=== PATIENT | female | born 1960 | race Caucasian/White ===

== ENCOUNTER 2017-07-13 22:55 | Emergency (ER) | payer BC, OTHER ==
[2017-07-13 22:59] VITALS: BP 120/83; PULSE 135; TEMP 98.9; BMI 31.7
--- NOTE | 2017-07-13 23:54 | PDOC ---
History of Present Illness - General History Source: Patient Exam Limitations: No Limitations - History of Present Illness Initial Comments: 07/14/17 00:06 Patient is a 56 year old female with pmhx of diabetes, cholecystectomy, hypercholesterolemia, and recurrent UTIs (complicated by pyelonephritis), who is accompanied by daughter and presents to the ER with cold sweats, cough, fever and weakness for 2 days. Patient has been taking motrin for the fever. She also reports nausea. She was seen by her PCP today who put her on levaquin and promethazine. Denies any vomiting, diarrhea, abdominal pain, lightheadedness or chest pain. <Corin Benavidez - Last Filed: 07/14/17 00:13> <Kerry Coyle - Last Filed: 07/14/17 01:37> - General Chief Complaint: Cold Symptoms Stated Complaint: FLU SYMPTOMS Time Seen by Provider: 07/13/17 23:06 Past History <Corin Benavidez - Last Filed: 07/14/17 00:13> - Past Medical History Anemia: No Asthma: No Cancer: No Cardiac Disorders: No CVA: No COPD: No Dementia: No Diabetes: Yes GI Disorders: No Disorders: No HTN: Yes Hypercholesterolemia: Yes Liver Disease: No Seizures: No Thyroid Disease: Yes - Surgical History Abdominal Surgery: No Appendectomy: No Cardiac Surgery: No Cholecystectomy: Yes Lung Surgery: No Neurologic Surgery: No Orthopedic Surgery: Yes (RIGHT SHOULDER ARTHROSCOPY) - Suicide/Smoking/Psychosocial Hx Smoking History: Never smoked Have you smoked in the past 12 months: No Information on smoking cessation initiated: No 'Breaking Loose' booklet given: 09/15/12 Hx Alcohol Use: No Drug/Substance Use Hx: No Substance Use Type: Alcohol <Kerry Coyle - Last Filed: 07/14/17 01:37> - Past Medical History Allergies/Adverse Reactions: Allergies Allergy/AdvReac Type Severity Reaction Status Date / Time No Known Drug Allergies Allergy Verified 07/13/17 22:57 Home Medications: Ambulatory Orders Aspirin Coated [Ecotrin -] 81 mg PO DAILY 09/01/12 Atorvastatin Ca [Lipitor] 20 mg PO HS 09/01/12 Levothyroxine [Synthroid -] 50 mcg PO DAILY 09/01/12 Metformin HCl [Glucophage] 1,000 mg PO BID 09/01/12 Glimepiride [Amaryl] 2 mg PO BID 09/15/12 Nebivolol HCl [Bystolic] 5 mg PO DAILY 02/25/14 Review of Systems - Review of Systems Able to Perform ROS?: Yes Comments:: 07/14/17 00:07 CONSTITUTIONAL: Present: fever, chills, diaphoresis, weakness Absent: malaise, loss of appetite HEENT: Absent: rhinorrhea, nasal congestion, throat pain, throat swelling, difficulty swallowing, mouth swelling, ear pain, eye pain, visual Changes CARDIOVASCULAR: Absent: chest pain, syncope, palpitations, irregular heart rate, lightheadedness , peripheral edema RESPIRATORY: Present: cough Absent: shortness of breath, dyspnea with exertion, orthopnea, wheezing, stridor , hemoptysis GASTROINTESTINAL: Absent: abdominal pain, abdominal distension, nausea, vomiting, diarrhea, constipation, melena, hematochezia GENITOURINARY: Absent: dysuria, frequency, urgency, hesitancy, hematuria, flank pain, genital pain MUSCULOSKELETAL: Absent: myalgia, arthralgia, joint swelling SKIN: Absent: rash, itching, pallor HEMATOLOGIC/IMMUNOLOGIC: Absent: easy bleeding, easy bruising, lymphadenopathy, frequent infections ENDOCRINE: Absent: unexplained weight gain, unexplained weight loss, heat intolerance, cold intolerance NEUROLOGIC: Absent: headache, focal weakness or paresthesias, dizziness, unsteady gait, seizure, mental status changes, bladder or bowel incontinence PSYCHIATRIC: Absent: anxiety, depression, suicidal or homicidal ideation, hallucinations. <Corin Benavidez - Last Filed: 07/14/17 00:13> *Physical Exam - Vital Signs Last Vital Signs Temp Pulse Resp BP Pulse Ox 98.9 F 135 H 18 120/83 96 07/13/17 22:57 07/13/17 22:57 07/13/17 22:57 07/13/17 22:57 07/13/17 22:57 - Physical Exam Comments: 07/14/17 00:07 GENERAL: Well developed, well nourished. Awake and alert. No acute distress. HEENT: Normocephalic, atraumatic. PERRLA, EOMI. No conjunctival pallor. Sclera are non- icteric. Moist mucous membranes. Oropharynx is clear. NECK: Supple. Full ROM. No JVD. Carotid pulses 2+ and symmetric, without bruits. No thyromegaly. No lymphadenopathy. CARDIOVASCULAR: +Tachycardia. No murmurs, rubs, or gallops. Distal pulses are 2+ and symmetric. PULMONARY: No evidence of respiratory distress. Lungs clear to auscultation bilaterally. No wheezing, rales or rhonchi. ABDOMINAL: Soft. Non-tender. Non-distended. No rebound or guarding. No organomegaly. Normoactive bowel sounds. MUSCULOSKELETAL Normal range of motion at all joints. No bony deformities or tenderness. No CVA tenderness. EXTREMITIES: No cyanosis. No clubbing. No edema. No calf tenderness. SKIN: Warm and dry. Normal capillary refill. No rashes. No jaundice. NEUROLOGICAL: Alert, awake, appropriate. Cranial nerves 2-12 intact. Normal speech. PSYCHIATRIC: Cooperative. Good eye contact. Appropriate mood and affect. <Corin Benavidez - Last Filed: 07/14/17 00:13> - Vital Signs Last Vital Signs Temp Pulse Resp BP Pulse Ox 98.9 F 135 H 18 120/83 96 07/13/17 22:57 07/13/17 22:57 07/13/17 22:57 07/13/17 22:57 07/13/17 22:57 <Kerry Coyle - Last Filed: 07/14/17 01:37> ED Treatment Course - LABORATORY CBC & Chemistry Diagram: 07/14/17 00:34 07/14/17 00:34 <Kerry Coyle - Last Filed: 07/14/17 01:37> *DC/Admit/Observation/Transfer - Attestations Scribe Attestion: 07/14/17 00:08 Documentation prepared by TAMI Pritchard, acting as medical assembler for Kerry Coyle MD/DO. <Corin Benavidez - Last Filed: 07/14/17 00:13> <Kerry Coyle - Last Filed: 07/14/17 01:37> Diagnosis at time of Disposition: Influenza B - Discharge Dispostion Disposition: HOME Condition at time of disposition: Stable - Referrals Referrals: Bob Muñoz MD [Primary Care Provider] - - Patient Instructions Printed Discharge Instructions: DI for Influenza -- Adult Additional Instructions: please take tylenol or motirn for fever and pain rest drink plenty of fluids support services rep your medications at your pharmacy
[2017-07-14] MEDS ORDERED: ACETAMINOPHEN 325 MG TABLET (FP) PO ONE (00:13)
[2017-07-14] MEDS ORDERED: ACETAMINOPHEN 325 MG TABLET (FP) ONE (00:29)
[2017-07-14 00:45] LABS: BASO % 0.6 % (0-2.0); EOS % 0.7 % (0-4.5); MCH 29.4 pg (25.7-33.7); MEAN CELL VOLUME 89.1 fl (80-96); MEAN PLT VOLUME 9.8 fl (7.5-11.1); NEUT % 68.7 % (42.8-82.8); PLATELET COUNT 132 K/MM3 (134-434); RDW 14.1 % (11.6-15.6); WHITE BLOOD COUNT 4.4 K/mm3 (4.0-10.0)
[2017-07-14 01:18] LABS: ALBUMIN 3.6 g/dl (3.4-5.0); ALK PHOS 79 U/L (45-117); BILIRUBIN,TOTAL 0.3 mg/dL (0.2-1.0); CALCIUM 8.7 mg/dL (8.5-10.1); CO2 23 mmol/L (21-32); CREATININE 0.6 mg/dL (0.55-1.02); GLUCOSE,RANDOM 118 mg/dL (74-106); SGOT/AST 30 U/L (15-37); SGPT/ALT 37 U/L (12-78); TOT PROT 7.2 g/dl (6.4-8.2)
[2017-07-14] MEDS ORDERED: OSELTAMIVIR PHOSPHATE 75 MG CAPSULE ONE (01:35)
[2017-07-14] MEDS ORDERED: OSELTAMIVIR PHOSPHATE 75 MG CAPSULE PO ONE (01:35)
[2017-07-14 01:59] LABS: ANION GAP 13 (8-16)
== END 2017-07-14 02:11 | disposition home or self-care (01) ==
LOC: JER 22:55
DX: J10.1 Influenza due to other identified influenza virus with other respiratory manifestations (principal); E11.9 Type 2 diabetes mellitus without complications; E78.00 Pure hypercholesterolemia, unspecified
CPT/HCPCS: 36415; 80053; 85025; 87804; 99281-25

== ENCOUNTER 2018-09-24 21:53 | Inpatient (IN) | payer OTHER ==
[2018-09-24 22:07] VITALS: BMI 39.0
[2018-09-24] MEDS ORDERED: ACETAMINOPHEN 1000 MG/100 ML VIAL (NON FORMULARY) IVPB ONE (22:32)
[2018-09-24] MEDS ORDERED: LACTATED RINGERS SOLUTION 1000 ML INFUS.BAG IV ONE (22:44)
[2018-09-24] MEDS ORDERED: ACETAMINOPHEN INJECTION 100 ML IVPB ONE (22:44)
--- NOTE | 2018-09-24 22:48 | PDOC ---
Attending Attestation - HPI HPI: 09/24/18 22:50 The patient is a 58 year old female, with a significant PMH of diabetes, hypertension, hyperlipidemia, coronary artery disease, who presents to the emergency department with one day of non productive cough, subjective fever, chills, generalized body aches, headache and congestion. The patient denies any sick contacts or travel. The patient denies recent chest pain, palpitations or SOB. Denies calf tenderness, leg swelling, lightheadedness or dizziness. Denies nausea, vomit, diarrhea and constipation. Denies dysuria, frequency, urgency and hematuria. Allergies: NKA Documentation prepared by Mingo Marcum, acting as medical sales for Brendon Mitchell MD. - Physicial Exam PE: 09/24/18 22:50 GENERAL: (+) Coughing throughout exam. Awake, alert, and fully oriented, in no acute distress HEAD: No signs of trauma EYES: PERRLA, EOMI, sclera anicteric, conjunctiva clear ENT: Auricles normal inspection, hearing grossly normal, nares patent. Moist mucosa NECK: Normal ROM, supple, no JVD. LUNGS: Breath sounds equal, clear to auscultation bilaterally. No wheezes, and no crackles HEART: Regular rate and rhythm, normal S1 and S2, no murmurs, rubs or gallops ABDOMEN: Soft, nontender. No guarding, no rebound. No masses EXTREMITIES: Normal range of motion, no edema. No clubbing or cyanosis. No cords, erythema, or tenderness NEUROLOGICAL: Cranial nerves II through XII intact. Normal speech. SKIN: Warm, Dry, normal turgor, no rashes or lesions noted. <Mingo Marcum - Last Filed: 09/24/18 22:50> - Resident Resident Name: Gladys Davison - ED Attending Attestation I have performed the following: I have examined & evaluated the patient, The case was reviewed & discussed with the resident, I agree w/resident's findings & plan, Exceptions are as noted - Medical Decision Making 09/24/18 22:43 A portion of this note was documented by scribe services under my direction. I have reviewed the details of the note, within reason, and agree with the documentation with the following case summary and management plan written by me. Patient treated in the ED. Nursing notes are reviewed and incorporated into the medical decision-making. Vital signs reviewed. Peripheral IV access obtained by the nurse, laboratory studies are drawn and sent, reviewed and interpreted by myself. Vital Signs Temp Pulse Resp BP Pulse Ox 102.1 F H 114 H 20 134/87 97 09/24/18 22:43 09/24/18 21:53 09/24/18 21:53 09/24/18 21:53 09/24/18 21:53 58-year-old female patient with past medical history of hypertension, diabetes, hyperlipidemia, coronary disease presents with flulike symptoms. Patient reported denies body aches, chills, fevers, nasal congestion, dry cough since yesterday. Denies sick contacts or recent travels. Patient reports feeling generally tired and fatigued. Differential includes viral syndrome, influenza, bronchitis, pneumonia, upper respiratory infection. We'll obtain labs, chest x-ray, influenza swab, cultures. IV fluids, antipyretics and reassess. 09/24/18 23:49 CBC, BMP 09/24/18 22:41 09/24/18 22:41 CMP Sodium 138 mmol/L (136-145) 09/24/18 22:41 Potassium 4.0 mmol/L (3.5-5.1) 09/24/18 22:41 Chloride 106 mmol/L (98-107) 09/24/18 22:41 Carbon Dioxide 21 mmol/L (21-32) 09/24/18 22:41 Anion Gap 10 MMOL/L (8-16) 09/24/18 22:41 BUN 11 mg/dL (7-18) 09/24/18 22:41 Creatinine 0.7 mg/dL (0.55-1.3) 09/24/18 22:41 Creat Clearance w eGFR > 60 (>60) 09/24/18 22:41 Random Glucose 96 mg/dL (74-106) 09/24/18 22:41 Calcium 9.1 mg/dL (8.5-10.1) 09/24/18 22:41 Magnesium 2.0 mg/dL (1.8-2.4) 09/24/18 22:42 Total Bilirubin 0.4 mg/dL (0.2-1) 09/24/18 22:41 AST 20 U/L (15-37) 09/24/18 22:41 ALT 28 U/L (13-61) 09/24/18 22:41 Alkaline Phosphatase 82 U/L (45-117) 09/24/18 22:41 Troponin I < 0.02 ng/ml (0.00-0.05) 09/24/18 22:35 Total Protein 7.7 g/dl (6.4-8.2) 09/24/18 22:41 Albumin 4.0 g/dl (3.4-5.0) 09/24/18 22:41 Though influenza swab is negative, the rapid test has a sensitivity of 50 to 70% . Given my high pretest probability, I will still treat for influenza with tamiflu. 09/25/18 00:01 Chest xray reviewed by me, pending official radiology read. No acute infiltrates but ?bronchitis. Will initiate azithromycin as well. lactic acid 2.6. Will repeat after giving IVF. If lactate and fever downtrending, pt can be discharged home with tamiflu and azithromycin and albuterol PRN. <Brendon Mitchell - Last Filed: 09/25/18 00:01> Heart Score/ECG Review #1 ECG reviewed & interpreted by me at: 23:30 09/24/18 23:48 NSR 116, no std/paula, normal axis, normal intervals, QTC 464 msec Poor R wave progression <Brendon Mitchell - Last Filed: 09/25/18 00:01>
[2018-09-24 22:49] LABS: BASO % 0.6 % (0-2.0); EOS % 0.7 % (0-4.5); HEMATOCRIT 40.4 % (32.4-45.2); HEMOGLOBIN 13.7 GM/dL (10.7-15.3); LYMPH % 14.4 % (8-40); MCH 30.6 pg (25.7-33.7); MCHC 33.9 g/dl (32.0-36.0); MEAN CELL VOLUME 90.3 fl (80-96); MEAN PLT VOLUME 9.8 fl (7.5-11.1); MONO % 4.7 % (3.8-10.2); NEUT % 79.6 % (42.8-82.8); PLATELET COUNT 163 K/MM3 (134-434); RBC 4.47 M/mm3 (3.60-5.2); RDW 14.2 % (11.6-15.6); WHITE BLOOD COUNT 12.2 K/mm3 (4.0-10.0)
[2018-09-24 22:51] LABS: URINE APPEARANCE CLEAR; URINE BILIRUBIN NEGATIVE (<2.0 mg/dL); URINE COLOR STRAW; URINE GLUCOSE (UA) NEGATIVE (NEGATIVE); URINE KETONE NEGATIVE (NEGATIVE); URINE LEUK ESTERASE NEGATIVE (NEGATIVE); URINE NITRITE NEGATIVE (NEGATIVE); URINE PROTEIN NEGATIVE (NEGATIVE); URINE UROBILINOGEN NEGATIVE mg/dL (0.2-1.0); VENOUS PC02 29.1 mmHg (38-52); VENOUS PH 7.46 (7.32-7.42); VENOUS PO2 87.2 mmHg (28-48)
[2018-09-24 22:53] LABS: EPI CELLS RARE /HPF (FEW); URINE MUCUS RARE
[2018-09-24 23:13] LABS: ALK PHOS 82 U/L (45-117); ANION GAP 10 MMOL/L (8-16); BILIRUBIN,TOTAL 0.4 mg/dL (0.2-1); BLOOD UREA NITROGEN 11 mg/dL (7-18); CALCIUM 9.1 mg/dL (8.5-10.1); CHLORIDE 106 mmol/L (98-107); CO2 21 mmol/L (21-32); CREATININE 0.7 mg/dL (0.55-1.3); GLUCOSE,RANDOM 96 mg/dL (74-106); SGOT/AST 20 U/L (15-37); SGPT/ALT 28 U/L (13-61); SODIUM 138 mmol/L (136-145); TOT PROT 7.7 g/dl (6.4-8.2)
[2018-09-24 23:17] LABS: INR 0.91 (0.83-1.09); PROTHROMBIN TIME (PATIENT) 10.7 SEC (9.7-13.0)
--- NOTE | 2018-09-25 00:08 | PDOC ---
History of Present Illness - General Chief Complaint: Chest Pain Stated Complaint: CHEST PAIN Time Seen by Provider: 09/24/18 22:03 History Source: Patient Exam Limitations: No Limitations - History of Present Illness Initial Comments: 09/25/18 00:03 Pt is a 58yo F with PMH of CAD s/p cath last year, HTN, HLD, DM presenting to ED with complaints of chest pain, headache, generalized weakness, dry cough, fever and chills that started yesterday with symptoms worse today. She endorses dry cough with a feeling of "something stuck" in the middle of her chest which she wants to cough out with pain located in that area. She denies recent hospitalization, antibiotic use, sick contacts, abdominal pain, n/v/d, urinary symptoms, neck stiffness, sore throat. PMD: Wanda PMH: see hpi PSH: see hpi Meds: see med rec Allergies: nkda Social: denies Past History - Past Medical History Allergies/Adverse Reactions: Allergies Allergy/AdvReac Type Severity Reaction Status Date / Time No Known Drug Allergies Allergy Verified 09/24/18 22:08 Home Medications: Ambulatory Orders Aspirin Coated [Ecotrin -] 81 mg PO DAILY 09/01/12 Atorvastatin Ca [Lipitor] 20 mg PO HS 09/01/12 Levothyroxine [Synthroid -] 50 mcg PO DAILY 09/01/12 metFORMIN HCL [Glucophage] 1,000 mg PO BID 09/01/12 Glimepiride [Amaryl] 2 mg PO BID 09/15/12 Nebivolol HCl [Bystolic] 5 mg PO DAILY 02/25/14 Oseltamivir Phosphate [Tamiflu] 75 mg PO BID #10 capsule 07/14/17 Azithromycin 250 mg PO DAILY #4 tablet 09/25/18 Oseltamivir Phosphate [Tamiflu -] 75 mg PO BID #10 capsule 09/25/18 Anemia: No Asthma: No Cancer: No Cardiac Disorders: No CVA: No COPD: No Dementia: No Diabetes: Yes GI Disorders: No Disorders: No HTN: Yes Hypercholesterolemia: Yes Liver Disease: No Seizures: No Thyroid Disease: Yes - Surgical History Abdominal Surgery: No Appendectomy: No Cardiac Surgery: No Cholecystectomy: Yes Lung Surgery: No Neurologic Surgery: No Orthopedic Surgery: Yes (RIGHT SHOULDER ARTHROSCOPY) - Suicide/Smoking/Psychosocial Hx Smoking History: Never smoked Have you smoked in the past 12 months: No Information on smoking cessation initiated: No 'Breaking Loose' booklet given: 09/15/12 Hx Alcohol Use: No Drug/Substance Use Hx: No Substance Use Type: Alcohol Review of Systems - Review of Systems Constitutional: Yes: Chills, Fever, Malaise HEENTM: Yes: Nose Congestion. No: Nose Pain, Throat Pain Respiratory: Yes: Cough, Shortness of Breath. No: Productive cough Cardiac (ROS): Yes: Chest Pain, Lightheadedness, Palpitations. No: Syncope ABD/GI: No: Constipated, Diarrhea, Nausea, Vomiting : No: Symptoms Reported Musculoskeletal: No: Symptoms Reported Integumentary: No: Symptoms Reported Neurological: No: Symptoms reported *Physical Exam - Vital Signs Last Vital Signs Temp Pulse Resp BP Pulse Ox 102.1 F H 114 H 20 134/87 97 09/24/18 22:43 09/24/18 21:53 09/24/18 21:53 09/24/18 21:53 09/24/18 21:53 - Physical Exam General Appearance: Yes: Nourished, Appropriately Dressed, Moderate Distress HEENT: positive: EOMI, ERNST, Pharynx Normal. negative: Sinus Tenderness Neck: positive: Trachea midline, Supple. negative: Lymphadenopathy (R), Lymphadenopathy (L) Respiratory/Chest: positive: Lungs Clear, Normal Breath Sounds, Other. negative : Respiratory Distress, Accessory Muscle Use Cardiovascular: positive: Tachycardia. negative: S1, S2, Edema, JVD, Murmur Vascular Pulses: Carotid (R): 2+, Carotid (L): 2+ Gastrointestinal/Abdominal: positive: Normal Bowel Sounds, Soft. negative: Guarding, Rebound, Tenderness Musculoskeletal: negative: CVA Tenderness Extremity: positive: Normal Capillary Refill, Pelvis Stable Integumentary: positive: Normal Color, Dry, Warm Neurologic: positive: java application engineer II-XII NML intact, Fully Oriented, Alert, Normal Mood/ Affect, Normal Response, Motor Strength 5/5 Moderate Sedation - Procedure Monitoring Vital Signs: Procedure Monitoring Vital Signs Temperature 102.1 F H 09/24/18 22:43 Pulse Rate 114 H 09/24/18 21:53 Respiratory Rate 20 09/24/18 21:53 Blood Pressure 134/87 09/24/18 21:53 O2 Sat by Pulse Oximetry (%) 97 09/24/18 21:53 ED Treatment Course - LABORATORY CBC & Chemistry Diagram: 09/24/18 22:41 09/24/18 22:41 - ADDITIONAL ORDERS Additional order review: Laboratory Results 09/24/18 09/24/18 09/24/18 22:42 22:41 22:41 PT with INR INR PTT (Actin FS) VBG pH 7.46 H POC VBG pCO2 29.1 L POC VBG pO2 87.2 H Mixed VBG HCO3 20.2 Sodium Potassium Chloride Carbon Dioxide Anion Gap BUN Creatinine Creat Clearance w eGFR Random Glucose Lactic Acid 2.6 H* Calcium Magnesium 2.0 Total Bilirubin AST ALT Alkaline Phosphatase Troponin I Total Protein Albumin Urine Color Urine Appearance Urine pH Ur Specific [place] Urine Protein Urine Glucose (UA) Urine Ketones Urine Blood Urine Nitrite Urine Bilirubin Urine Urobilinogen Ur Leukocyte Esterase Urine WBC (Auto) Urine RBC (Auto) Ur Epithelial Cells Urine Mucus 09/24/18 09/24/18 09/24/18 22:41 22:41 22:41 PT with INR 10.70 INR 0.91 PTT (Actin FS) 26.4 VBG pH POC VBG pCO2 POC VBG pO2 Mixed VBG HCO3 Sodium Potassium Chloride Carbon Dioxide Anion Gap BUN Creatinine Creat Clearance w eGFR Random Glucose Lactic Acid Calcium Magnesium Total Bilirubin AST ALT Alkaline Phosphatase Troponin I Total Protein Albumin Urine Color Straw Urine Appearance Clear Urine pH 5.0 Ur Specific [place] 1.006 L Urine Protein Negative Urine Glucose (UA) Negative Urine Ketones Negative Urine Blood 1+ H Urine Nitrite Negative Urine Bilirubin Negative Urine Urobilinogen Negative Ur Leukocyte Esterase Negative Urine WBC (Auto) 3 Urine RBC (Auto) 4 Ur Epithelial Cells Rare Urine Mucus Rare 09/24/18 09/24/18 22:41 22:35 PT with INR INR PTT (Actin FS) VBG pH POC VBG pCO2 POC VBG pO2 Mixed VBG HCO3 Sodium 138 Potassium 4.0 Chloride 106 Carbon Dioxide 21 Anion Gap 10 BUN 11 Creatinine 0.7 Creat Clearance w eGFR > 60 Random Glucose 96 Lactic Acid Calcium 9.1 Magnesium Total Bilirubin 0.4 AST 20 ALT 28 Alkaline Phosphatase 82 Troponin I < 0.02 Total Protein 7.7 Albumin 4.0 Urine Color Urine Appearance Urine pH Ur Specific [place] Urine Protein Urine Glucose (UA) Urine Ketones Urine Blood Urine Nitrite Urine Bilirubin Urine Urobilinogen Ur Leukocyte Esterase Urine WBC (Auto) Urine RBC (Auto) Ur Epithelial Cells Urine Mucus 03/01/19 22:41 RBC 4.47 MCV 90.3 MCHC 33.9 RDW 14.2 MPV 9.8 Neutrophils % 79.6 D Lymphocytes % 14.4 D Monocytes % 4.7 Eosinophils % 0.7 Basophils % 0.6 - RADIOLOGY Radiology Studies Ordered: Category Date Time Status CHEST PA & LAT [RAD] Stat Radiology 09/24/18 22:04 Taken - Medications Given in the ED: ED Medications Discontinued Medications Generic Name Dose Route Start Last Admin Trade Name Davi PRN Reason Stop Dose Admin Acetaminophen 1,000 mg 09/24/18 22:32 09/24/18 22:52 Ofirmev Injection - IVPB 09/24/18 22:33 1,000 mg ONCE ONE Administration Lactated Ringer's 1,000 ml 09/24/18 22:44 09/24/18 23:40 Lactated Ringers Solution IV 09/24/18 22:45 1,000 ml NOW ONE Administration Medical Decision Making - Medical Decision Making 09/25/18 00:07 Pt is a 58yo F with PMH of CAD s/p cath last year, HTN, HLD, DM presenting to ED with complaints of chest pain, headache, generalized weakness, dry cough, fever and chills that started yesterday with symptoms worse today. She endorses dry cough with a feeling of "something stuck" in the middle of her chest which she wants to cough out with pain located in that area. She denies recent hospitalization, antibiotic use, sick contacts, abdominal pain, n/v/d, urinary symptoms, neck stiffness, sore throat. Vitals: febrile, tachycardic PE: ill appearing. ddx includes but not limited to influenza, pna, acs, pe, dissection, endocarditis, pericarditis Higher suspicion for infectious process -sepsis workup, influenza swab -iv tylenol, iv fluids -ekg, cxr Labs significant for no white count, electrolytes wnl. negative trop. Lactate 2.6. Flu negative however test is 50% sensitive. EKG does not show infiltrates. High suspicion for flu. Will treat. Repeat temp 101. Will give ibuprofen. -Tamiflu and Zithromycin 09/25/18 02:31 After 2L lactate went up to 3.0. Temp 100. Giving 3rd L. With increased lactic acid and borderline tachycardia and comorbidities, will admit. Pt admitted to Dr. Dominguez *DC/Admit/Observation/Transfer Diagnosis at time of Disposition: Lactic acidosis Sepsis Qualifiers: Sepsis type: sepsis due to unspecified organism Qualified Code(s): A41.9 - Sepsis, unspecified organism - Discharge Dispostion Condition at time of disposition: Good Decision to Admit order: Yes - Prescriptions - Referrals - Patient Instructions - Post Discharge Activity
[2018-09-25] MEDS ORDERED: IBUPROFEN 600 MG TABLET (FP) PO ONE (00:09)
[2018-09-25] MEDS ORDERED: AZITHROMYCIN 250 MG TABLET PO ONE (00:13)
[2018-09-25] MEDS ORDERED: OSELTAMIVIR PHOSPHATE 75 MG CAPSULE PO ONE (00:13)
[2018-09-25] MEDS ORDERED: OSELTAMIVIR PHOSPHATE 75 MG CAPSULE ONE (00:31)
[2018-09-25] MEDS ORDERED: IBUPROFEN 400 MG TABLET (FP) PO ONE (00:32)
[2018-09-25] MEDS ORDERED: AZITHROMYCIN 500 MG TABLET ONE (00:32)
[2018-09-25] MEDS ORDERED: SODIUM CHLORIDE 1,000 ML IV STA ×2 (02:26→03:31)
--- NOTE | 2018-09-25 04:11 | HP ---
CHIEF COMPLAINT: Flu Like Symptoms, Chest Pain PCP: Dr. Alyson Muñoz HISTORY OF PRESENT ILLNESS: This is a 58 y/o woman with a PMHx of: CAD s/p cath last year, no stents, HTN, HLD, DM. Who presents to the ED with flu-like symptoms, chest pain x several days. Patient reports subjective fever 102 with a non-productive cough. Patient reports having CP with coughing. Patient reports taking Tylenol with little relief. Patient denies recent sick contacts or travel. Patient denies SOB, dizziness, palpitations, AP, N/V/D, constipation, dysuria ER course was notable for: (1) Sepsis Criteria IV Met: T Max 102.2, P 114, WBC 12.2, Lactic Acid 2.6~3.0 (2) (3) Recent Travel: None PAST MEDICAL HISTORY: See HPI PAST SURGICAL HISTORY: Cholecystectomy R- Shoulder Arthroscopy Social History: Smoking: None Alcohol: None Drugs: None Lives with family Family History: Allergies No Known Drug Allergies Allergy (Verified 09/24/18 22:08) HOME MEDICATIONS: Home Medications Medication Instructions Recorded Aspirin Coated [Ecotrin -] 81 mg PO DAILY 09/01/12 Atorvastatin Ca [Lipitor] 20 mg PO HS 09/01/12 Levothyroxine [Synthroid -] 50 mcg PO DAILY 09/01/12 metFORMIN HCL [Glucophage] 1,000 mg PO BID 09/01/12 Glimepiride [Amaryl] 2 mg PO BID 09/15/12 Nebivolol HCl [Bystolic] 5 mg PO DAILY 02/25/14 Oseltamivir Phosphate [Tamiflu] 75 mg PO BID #10 capsule 07/14/17 Azithromycin 250 mg PO DAILY #4 tablet 09/25/18 Oseltamivir Phosphate [Tamiflu -] 75 mg PO BID #10 capsule 09/25/18 REVIEW OF SYSTEMS CONSTITUTIONAL: fever, chills, generalized weakness Absent: diaphoresis, malaise, loss of appetite, weight change HEENT: Absent: rhinorrhea, nasal congestion, throat pain, throat swelling, difficulty swallowing, mouth swelling, ear pain, eye pain, visual changes CARDIOVASCULAR: chest pain Absent: syncope, palpitations, irregular heart rate, lightheadedness, peripheral edema RESPIRATORY: cough Absent: shortness of breath, dyspnea with exertion, orthopnea, wheezing, stridor , hemoptysis GASTROINTESTINAL: Absent: abdominal pain, abdominal distension, nausea, vomiting, diarrhea, constipation, melena, hematochezia GENITOURINARY: Absent: dysuria, frequency, urgency, hesitancy, hematuria, flank pain, genital pain MUSCULOSKELETAL: Absent: myalgia, arthralgia, joint swelling, back pain, neck pain SKIN: Absent: rash, itching, pallor HEMATOLOGIC/IMMUNOLOGIC: Absent: easy bleeding, easy bruising, lymphadenopathy, frequent infections ENDOCRINE: Absent: unexplained weight gain, unexplained weight loss, heat intolerance, cold intolerance NEUROLOGIC: Absent: headache, focal weakness or paresthesias, dizziness, unsteady gait, seizure, mental status changes, bladder or bowel incontinence PSYCHIATRIC: Absent: anxiety, depression, suicidal or homicidal ideation, hallucinations. PHYSICAL EXAMINATION Vital Signs - 24 hr 09/24/18 09/24/18 09/25/18 21:53 22:43 00:04 Temperature 98.9 F 102.1 F H 101.2 F H Pulse Rate 114 H Pulse Rate [ Right Radial] Respiratory 20 Rate Blood Pressure 134/87 Blood Pressure [Left Arm] O2 Sat by Pulse 97 Oximetry (%) 09/25/18 09/25/18 00:05 02:57 Temperature 101.2 F H 100 F H Pulse Rate Pulse Rate [ 99 H Right Radial] Respiratory 19 Rate Blood Pressure Blood Pressure 125/74 [Left Arm] O2 Sat by Pulse 99 Oximetry (%) GENERAL: Awake, alert, and fully oriented, in no acute distress. HEAD: Normal with no signs of trauma. EYES: Pupils equal, round and reactive to light, extraocular movements intact, sclera anicteric, conjunctiva clear. No lid lag. EARS, NOSE, THROAT: Ears normal, nares patent, oropharynx clear without exudates. Dry mucous membranes. NECK: Normal range of motion, supple without lymphadenopathy, JVD, or masses. LUNGS: Breath sounds equal, clear to auscultation bilaterally. No wheezes, and no crackles. No accessory muscle use. HEART: Regular rate and rhythm, normal S1 and S2 without murmur, rub or gallop. ABDOMEN: Obese, soft, nontender, not distended, normoactive bowel sounds, no guarding, no rebound, no masses. No hepatomegaly or splenomegaly. MUSCULOSKELETAL: Normal range of motion at all joints. No bony deformities or tenderness. No CVA tenderness. UPPER EXTREMITIES: 2+ pulses, warm, well-perfused. No cyanosis. No clubbing. No peripheral edema. LOWER EXTREMITIES: 2+ pulses, warm, well-perfused. No calf tenderness. No peripheral edema. NEUROLOGICAL: Cranial nerves II-XII intact. Normal speech. Gait not observed. PSYCHIATRIC: Cooperative. Good eye contact. Appropriate mood and affect. SKIN: Warm, dry, normal turgor, no rashes or lesions noted, normal capillary refill. Laboratory Results - last 24 hr 09/24/18 09/24/18 09/24/18 22:35 22:41 22:41 WBC 12.2 H RBC 4.47 Hgb 13.7 Hct 40.4 MCV 90.3 MCH 30.6 MCHC 33.9 RDW 14.2 Plt Count 163 MPV 9.8 Absolute Neuts (auto) 9.7 H Neutrophils % 79.6 D Lymphocytes % 14.4 D Monocytes % 4.7 Eosinophils % 0.7 Basophils % 0.6 Nucleated RBC % 0 PT with INR INR PTT (Actin FS) VBG pH POC VBG pCO2 POC VBG pO2 Mixed VBG HCO3 Sodium 138 Potassium 4.0 Chloride 106 Carbon Dioxide 21 Anion Gap 10 BUN 11 Creatinine 0.7 Creat Clearance w eGFR > 60 Random Glucose 96 Lactic Acid Calcium 9.1 Magnesium Total Bilirubin 0.4 AST 20 ALT 28 Alkaline Phosphatase 82 Troponin I < 0.02 Total Protein 7.7 Albumin 4.0 Urine Color Urine Appearance Urine pH Ur Specific [place] Urine Protein Urine Glucose (UA) Urine Ketones Urine Blood Urine Nitrite Urine Bilirubin Urine Urobilinogen Ur Leukocyte Esterase Urine WBC (Auto) Urine RBC (Auto) Ur Epithelial Cells Urine Mucus Influenza A (Rapid) Influenza B (Rapid) 09/24/18 09/24/18 09/24/18 22:41 22:41 22:41 WBC RBC Hgb Hct MCV MCH MCHC RDW Plt Count MPV Absolute Neuts (auto) Neutrophils % Lymphocytes % Monocytes % Eosinophils % Basophils % Nucleated RBC % PT with INR 10.70 INR 0.91 PTT (Actin FS) 26.4 VBG pH POC VBG pCO2 POC VBG pO2 Mixed VBG HCO3 Sodium Potassium Chloride Carbon Dioxide Anion Gap BUN Creatinine Creat Clearance w eGFR Random Glucose Lactic Acid Calcium Magnesium Total Bilirubin AST ALT Alkaline Phosphatase Troponin I Total Protein Albumin Urine Color Straw Urine Appearance Clear Urine pH 5.0 Ur Specific [place] 1.006 L Urine Protein Negative Urine Glucose (UA) Negative Urine Ketones Negative Urine Blood 1+ H Urine Nitrite Negative Urine Bilirubin Negative Urine Urobilinogen Negative Ur Leukocyte Esterase Negative Urine WBC (Auto) 3 Urine RBC (Auto) 4 Ur Epithelial Cells Rare Urine Mucus Rare Influenza A (Rapid) Influenza B (Rapid) 09/24/18 09/24/18 09/24/18 22:41 22:41 22:42 WBC RBC Hgb Hct MCV MCH MCHC RDW Plt Count MPV Absolute Neuts (auto) Neutrophils % Lymphocytes % Monocytes % Eosinophils % Basophils % Nucleated RBC % PT with INR INR PTT (Actin FS) VBG pH 7.46 H POC VBG pCO2 29.1 L POC VBG pO2 87.2 H Mixed VBG HCO3 20.2 Sodium Potassium Chloride Carbon Dioxide Anion Gap BUN Creatinine Creat Clearance w eGFR Random Glucose Lactic Acid 2.6 H* Calcium Magnesium 2.0 Total Bilirubin AST ALT Alkaline Phosphatase Troponin I Total Protein Albumin Urine Color Urine Appearance Urine pH Ur Specific [place] Urine Protein Urine Glucose (UA) Urine Ketones Urine Blood Urine Nitrite Urine Bilirubin Urine Urobilinogen Ur Leukocyte Esterase Urine WBC (Auto) Urine RBC (Auto) Ur Epithelial Cells Urine Mucus Influenza A (Rapid) Influenza B (Rapid) 09/24/18 09/25/18 22:45 01:45 WBC RBC Hgb Hct MCV MCH MCHC RDW Plt Count MPV Absolute Neuts (auto) Neutrophils % Lymphocytes % Monocytes % Eosinophils % Basophils % Nucleated RBC % PT with INR INR PTT (Actin FS) VBG pH POC VBG pCO2 POC VBG pO2 Mixed VBG HCO3 Sodium Potassium Chloride Carbon Dioxide Anion Gap BUN Creatinine Creat Clearance w eGFR Random Glucose Lactic Acid 3.0 H* Calcium Magnesium Total Bilirubin AST ALT Alkaline Phosphatase Troponin I Total Protein Albumin Urine Color Urine Appearance Urine pH Ur Specific [place] Urine Protein Urine Glucose (UA) Urine Ketones Urine Blood Urine Nitrite Urine Bilirubin Urine Urobilinogen Ur Leukocyte Esterase Urine WBC (Auto) Urine RBC (Auto) Ur Epithelial Cells Urine Mucus Influenza A (Rapid) Negative Influenza B (Rapid) Negative ASSESSMENT/PLAN: This is a 58 y.o woman with a PMHx of: CAD s/p cath last year no stent, HTN, HLD , DM. Admitted for Sepsis secondary to Viral Syndrome for further evaluation of their emergent condition. Plan: See Problem List FEN PO fluids as tolerated Replete lytes prn Low Na Diabetic Diet DVT ppx OOB SCDs Heparin SQ Dispo: Requires Inpatient Care Problem List - Problem (1) Sepsis Assessment/Plan: Likely secondary to Influenza qSOFA 0 Sepsis Criteria Met IV: T Max 102, P 114, Lactic Acid 2.6, WBC 12.2 Chest Xray- no infiltrate, no effusion Blood Cultures-pending Urine Culture-pending Rapid Influenza- neg A+B Rapid strep-pending Tamiflu given in ED, will continue Azithromycin given in ED Continue IVF Appreciate ID consult Monitor CBC, BMP Trend Lactic Acid Monitor vitals Code(s): A41.9 - SEPSIS, UNSPECIFIED ORGANISM (2) Fever Assessment/Plan: Likely secondary to Sepsis with ?superimposed Influenza Chest Xray image- no infiltrate no effusion appreciated, awaiting official report WBC 12.2 Tylenol prn Monitor CBC Monitor vitals Code(s): R50.9 - FEVER, UNSPECIFIED (3) Lactic acidosis Assessment/Plan: Likely secondary to Sepsis vs Metformin use Fluid resuscitation 3L NS given in ED Lactic Acid 2.6~ 3.0 Trend Lactic Monitor vitals Code(s): E87.2 - ACIDOSIS (4) Hypertension Assessment/Plan: Stable Monitor BP Continue Bystolic Monitor renal function Code(s): I10 - ESSENTIAL (PRIMARY) HYPERTENSION (5) Diabetes mellitus Assessment/Plan: Stable Monitor BGMs ISS Hold Metformin secondary to Sepsis, Lactic Acidosis Code(s): E11.9 - TYPE 2 DIABETES MELLITUS WITHOUT COMPLICATIONS (6) Hyperlipidemia Assessment/Plan: Stable Continue Lipitor Monitor LFTs Code(s): E78.5 - HYPERLIPIDEMIA, UNSPECIFIED (7) Hypothyroidism Assessment/Plan: Stable Continue Synthyroid TSH in am Code(s): E03.9 - HYPOTHYROIDISM, UNSPECIFIED Visit type - Emergency Visit Emergency Visit: Yes ED Registration Date: 09/24/18 Care time: The patient presented to the Emergency Department on the above date and was hospitalized for further evaluation of their emergent condition. - New Patient This patient is new to me today: Yes Date on this admission: 09/25/18 - Critical Care Critical Care patient: No
[2018-09-25] MEDS ORDERED: ACETAMINOPHEN 325 MG TABLET (FP) PO PRN (05:00)
[2018-09-25] MEDS ORDERED: LEVOTHYROXINE NA 25 MCG TABLET (FP) ONE (06:43)
[2018-09-25] MEDS: INSULIN SLIDING SCALE (NOVOLOG) 1 VIAL SQ SCH ×4 (06:43→22:28)
[2018-09-25] MEDS: LEVOTHYROXINE NA 50 MCG TABLET (FP) PO SCH (06:49)
[2018-09-25] MEDS: ASPIRIN COATED 81 MG TABLET.EC PO SCH (10:46)
[2018-09-25] MEDS: NEBIVOLOL 5 MG TABLET (FP) PO SCH (11:50)
[2018-09-25] MEDS ORDERED: PT OWN MED DRAWER 7, Y5N ONE (13:20)
[2018-09-25] MEDS: OSELTAMIVIR PHOSPHATE 75 MG CAPSULE PO SCH ×2 (13:50→22:29)
--- NOTE | 2018-09-25 15:50 | PN ---
Progress Note, Physician - Current Medication List Current Medications: Active Medications Acetaminophen (Tylenol -) 650 mg PO Q6H PRN PRN Reason: PAIN LEVEL 1-5 OR FEVER Aspirin (Ecotrin -) 81 mg PO DAILY [facility] Last Admin: 09/25/18 10:46 Dose: 81 mg Atorvastatin Calcium (Lipitor -) 20 mg PO HS [facility] Insulin Aspart (Novolog Vial Sliding Scale -) 1 vial SQ ACHS [facility]; Protocol Last Admin: 09/25/18 11:31 Dose: Not Given Levothyroxine Sodium (Synthroid -) 50 mcg PO DAILY@0700 [facility] Last Admin: 09/25/18 06:49 Dose: 50 mcg Nebivolol (Bystolic -) 5 mg PO DAILY [facility] Last Admin: 09/25/18 11:50 Dose: 5 mg Oseltamivir Phosphate (Tamiflu -) 75 mg PO BID [facility] Stop: 09/30/18 11:59 Last Admin: 09/25/18 13:50 Dose: 75 mg - Objective Vital Signs: Vital Signs Temperature 97.7 F 09/25/18 10:49 Pulse Rate 81 09/25/18 10:49 Respiratory Rate 18 09/25/18 10:49 Blood Pressure 124/67 09/25/18 10:49 O2 Sat by Pulse Oximetry (%) 96 09/25/18 11:13 Labs: CBC, BMP 09/24/18 22:41 09/24/18 22:41 INR, PTT INR 0.91 (0.83-1.09) 09/24/18 22:41
--- NOTE | 2018-09-25 16:06 | PN ---
Progress Note (short form) - Note Progress Note: ID consult dictated fever, lactic acidosis- 2 day history of cough, fever, myalgia cxray negative possible influenza possible bronchitis agree with empiric tamiflu- our test is does not have a high sensitivity would complete a 5 day course of zithromax as well droplet isolation to continue f/u cultures in am Problem List - Problems (1) Fever Code(s): R50.9 - FEVER, UNSPECIFIED (2) Lactic acidosis Code(s): E87.2 - ACIDOSIS
[2018-09-25] MEDS ORDERED: ATORVASTATIN CA 20 MG TABLET (FP) PO SCH (22:00)
[2018-09-26] MEDS: LEVOTHYROXINE NA 50 MCG TABLET (FP) PO SCH (06:12)
[2018-09-26] MEDS: INSULIN SLIDING SCALE (NOVOLOG) 1 VIAL SQ SCH ×2 (06:13→11:33)
[2018-09-26 07:40] LABS: BASO % 0.8 % (0-2.0); EOS % 1.3 % (0-4.5); HEMATOCRIT 36.6 % (32.4-45.2); HEMOGLOBIN 12.3 GM/dL (10.7-15.3); LYMPH % 33.3 % (8-40); MCH 30.2 pg (25.7-33.7); MCHC 33.7 g/dl (32.0-36.0); MEAN CELL VOLUME 89.7 fl (80-96); MEAN PLT VOLUME 9.8 fl (7.5-11.1); MONO % 7.3 % (3.8-10.2); NEUT % 57.3 % (42.8-82.8); PLATELET COUNT 120 K/MM3 (134-434); RBC 4.08 M/mm3 (3.60-5.2); RDW 14.2 % (11.6-15.6); WHITE BLOOD COUNT 6.1 K/mm3 (4.0-10.0)
[2018-09-26 07:53] LABS: ANION GAP 8 MMOL/L (8-16); BLOOD UREA NITROGEN 10 mg/dL (7-18); CALCIUM 8.5 mg/dL (8.5-10.1); CHLORIDE 105 mmol/L (98-107); CO2 25 mmol/L (21-32); CREATININE 0.6 mg/dL (0.55-1.3); GLUCOSE,RANDOM 140 mg/dL (74-106); POTASSIUM 3.8 mmol/L (3.5-5.1); SODIUM 139 mmol/L (136-145)
--- NOTE | 2018-09-26 08:34 | CONS ---
DATE OF CONSULTATION: 09/25/2018 REQUESTED BY: Samy Dominguez MD This is a 58-year-old woman with a past medical history of coronary artery disease, hypertension, hyperlipidemia, diabetes presents with a 2-day history of fever and cough, 2 episodes of diarrhea, and generalized weakness. She had a fever of 102. She notes chest pain with cough. She was trying Tylenol without any improvement. There is no history of any travel. Her last trip was to [place]; she went in February and returned in April. She has no sick contacts. She lives alone. She had an influenza screen done in the emergency room that was negative. Her temperature maximum was 100.2, she had a lactic acid of 3, was admitted for further evaluation. PAST MEDICAL HISTORY: As listed. Coronary artery disease, hypertension, hyperlipidemia, diabetes. SURGICAL HISTORY: Cholecystectomy, right shoulder arthroscopy. SOCIAL HISTORY: She lives alone. There is no history of any cigarette or substance use. Currently, she is not working. She did recently see a friend and friend's child, who were sick. She did get a flu shot this year, in April. She has no known drug allergies. MEDICATIONS AN OUTPATIENT: Aspirin, Lipitor, Synthroid, Glucophage, Amaryl, Bystolic. REVIEW OF SYSTEMS: As per HPI. Currently, she reports 1 episode of loose stool. She has no abdominal pain. PHYSICAL EXAMINATION: Vital Signs: Her temperature is 98.5, temperature maximum was 101.2, pulse of 93, blood pressure 119/71, respiratory rate is 18. She is saturating 96%. HEENT: She is normocephalic. Her eyes are anicteric. Neck: Supple. Lungs: Clear to auscultation. Heart: Regular rate and rhythm. Abdomen: Soft, nontender. Extremities: Without edema. White count is 12.2, hemoglobin 13.7, platelets of 163. BUN 11, creatinine 0.7. Normal LFTs. Her lactic acid was 3, repeat of 1.6. Urinalysis is negative. Her influenza screen is negative. Blood cultures, urine cultures are pending. Chest x-ray is negative for acute infiltrate. SUMMARY: This is a 58-year-old woman with diabetes and heart disease who was admitted with fever, lactic acidosis, cough, acute onset of cough and fever in the middle of influenza season. I think it is reasonable to continue her Tamiflu, as the test in our hospital is not that accurate. We will send a respiratory virus panel in order to see if we can make a diagnosis. Would continue, as well, her Zithromax for bronchitis, which we can certainly continue orally as well. Further recommendations to follow. ERNESTO HOLLIDAY M.D. [id number]
[2018-09-26] MEDS ORDERED: AZITHROMYCIN 250 MG TABLET PO SCH (10:00)
--- NOTE | 2018-09-26 10:05 | PN ---
Progress Note, Physician - Current Medication List Current Medications: Active Medications Acetaminophen (Tylenol -) 650 mg PO Q6H PRN PRN Reason: PAIN LEVEL 1-5 OR FEVER Last Admin: 09/25/18 16:06 Dose: 650 mg Aspirin (Ecotrin -) 81 mg PO DAILY [facility] Last Admin: 09/25/18 10:46 Dose: 81 mg Atorvastatin Calcium (Lipitor -) 20 mg PO HS [facility] Last Admin: 09/25/18 22:29 Dose: 20 mg Azithromycin (Zithromax -) 250 mg PO DAILY [facility] Insulin Aspart (Novolog Vial Sliding Scale -) 1 vial SQ ACHS [facility]; Protocol Last Admin: 09/26/18 06:13 Dose: Not Given Levothyroxine Sodium (Synthroid -) 50 mcg PO DAILY@0700 [facility] Last Admin: 09/26/18 06:12 Dose: 50 mcg Nebivolol (Bystolic -) 5 mg PO DAILY [facility] Last Admin: 09/25/18 11:50 Dose: 5 mg Oseltamivir Phosphate (Tamiflu -) 75 mg PO BID [facility] Stop: 09/30/18 11:59 Last Admin: 09/25/18 22:29 Dose: 75 mg - Objective Vital Signs: Vital Signs Temperature 98.6 F 09/26/18 06:00 Pulse Rate 78 09/26/18 06:00 Respiratory Rate 18 09/26/18 06:00 Blood Pressure 145/93 09/26/18 06:00 O2 Sat by Pulse Oximetry (%) 96 09/25/18 22:00 Labs: CBC, BMP 09/26/18 06:15 09/26/18 06:15 INR, PTT INR 0.91 (0.83-1.09) 09/24/18 22:41
--- NOTE | 2018-09-26 10:19 | DS ---
Physical Examination Vital Signs: Vital Signs Temperature 98.6 F 09/26/18 06:00 Pulse Rate 78 09/26/18 06:00 Respiratory Rate 18 09/26/18 06:00 Blood Pressure 145/93 09/26/18 06:00 O2 Sat by Pulse Oximetry (%) 96 09/25/18 22:00 Constitutional: Yes: No Distress Eyes: Yes: WNL HENT: Yes: WNL Neck: Yes: WNL Cardiovascular: Yes: WNL Respiratory: Yes: WNL Gastrointestinal: Yes: WNL Musculoskeletal: Yes: WNL Extremities: Yes: WNL Edema: No Peripheral Pulses WNL: Yes Integumentary: Yes: WNL Wound/Incision: Yes: Clean/Dry Neurological: Yes: WNL ...Motor Strength: WNL Psychiatric: Yes: WNL Labs: CBC, BMP 09/26/18 06:15 09/26/18 06:15 Discharge Summary Reason For Visit: SEPSIS Current Active Problems Diabetes mellitus (Acute) Fever (Acute) Hyperlipidemia (Acute) Hypertension (Acute) Hypothyroidism (Acute) Lactic acidosis (Acute) Sepsis (Acute) Hospital Course: CXR/LABS TREATED FOR ACUTE BRONCHITIS WITH INFLUENZA W/UP Condition: Good - Instructions Diet, Activity, Other Instructions: SEE DR GARRETT IN 3 DAYS Referrals: Bob Garrett MD [Primary Care Provider] - Disposition: HOME - Home Medications Comprehensive Discharge Medication List: Ambulatory Orders Aspirin Coated [Ecotrin -] 81 mg PO DAILY 09/01/12 Atorvastatin Ca [Lipitor] 20 mg PO HS 09/01/12 Levothyroxine [Synthroid -] 50 mcg PO DAILY 09/01/12 metFORMIN HCL [Glucophage] 1,000 mg PO BID 09/01/12 Glimepiride [Amaryl] 2 mg PO BID 09/15/12 Nebivolol HCl [Bystolic] 5 mg PO DAILY 02/25/14 Oseltamivir Phosphate [Tamiflu] 75 mg PO BID #10 capsule 07/14/17 Azithromycin 250 mg PO DAILY #4 tablet 09/25/18 Levothyroxine [Synthroid -] 100 mcg PO WEEKLY 09/25/18 Oseltamivir Phosphate [Tamiflu -] 75 mg PO BID #10 capsule 09/25/18 Azithromycin [Zithromax 250mg Tablets -] 250 mg PO DAILY #4 tablet 09/26/18 Oseltamivir Phosphate [Tamiflu -] 75 mg PO BID #10 capsule 09/26/18
[2018-09-26] MEDS: NEBIVOLOL 5 MG TABLET (FP) PO SCH (10:47)
[2018-09-26] MEDS: ASPIRIN COATED 81 MG TABLET.EC PO SCH (10:47)
[2018-09-26] MEDS: OSELTAMIVIR PHOSPHATE 75 MG CAPSULE PO SCH (10:47)
[2018-09-26 13:23] VITALS: BP 116/71; PULSE 82; TEMP 98.3
--- NOTE | 2018-09-28 13:56 | EKG ---
Test Reason : Blood Pressure : / mmHG Vent. Rate : 116 BPM Atrial Rate : 116 BPM P-R Int : 144 ms QRS Dur : 084 ms QT Int : 334 ms P-R-T Axes : 051 -21 053 degrees QTc Int : 464 ms SINUS TACHYCARDIA POSSIBLE LEFT ATRIAL ENLARGEMENT BORDERLINE ECG WHEN COMPARED WITH ECG OF 13-NOV-2015 17:43, PREMATURE VENTRICULAR COMPLEXES ARE NO LONGER PRESENT Confirmed by MD Jaziel, Bal ([id number]) on 09/28/2018 1:55:44 PM Referred By: Confirmed By:Bal Sheriff MD
== END 2018-09-26 13:08 | disposition home or self-care (01) | DRG 113 ==
LOC: JER 21:53 → JERBED 09-25 02:30 → J6S 09-25 10:05
PROVIDERS: ADMIT Family Medicine; ATTEND Family Medicine
DX: J11.1 Influenza due to unidentified influenza virus with other respiratory manifestations (principal); J20.9 Acute bronchitis, unspecified; B34.9 Viral infection, unspecified; E87.2 Acidosis; E11.9 Type 2 diabetes mellitus without complications; I10 Essential (primary) hypertension; E78.5 Hyperlipidemia, unspecified; I25.10 Atherosclerotic heart disease of native coronary artery without angina pectoris; Z79.84 Long term (current) use of oral hypoglycemic drugs; E03.9 Hypothyroidism, unspecified
CPT/HCPCS: 36415; 71046-TC-FY; 80048; 80053; 81003; 81015; 82803; 82962; 83605; 83735; 84443; 84484; 85025; 85610; 85730; 87040; 87086; 87804; 93005; 93010; 99285-25; J0131; J7030

== ENCOUNTER 2019-01-01 12:39 | Emergency (ER) | payer OTHER ==
--- NOTE | 2019-01-01 13:08 | PDOC ---
History of Present Illness - General Chief Complaint: Injury Stated Complaint: FALL, RT LEG PAIN Time Seen by Provider: 01/01/19 12:48 History Source: Patient Exam Limitations: No Limitations - History of Present Illness Initial Comments: 01/01/19 13:08 58y F hx of cad, htn, hl, dm, presents for evaluation of R knee pain. Pt states she was in her usual state of haelth when she fell. She is unclear why she fell as it happened so fast, but suspect she may have tripped on a crack. denies loc , head injury or associated chest pain, palpitations, shortness of breath, nausea, vomiting, diaphoresis, recent illness including fevers, chills, cough, diarrhea, dysuria, melena, BPR. The patient's fall was not witnessed however she was walking in the park with her family and when she follow she immediately called out the family turned around and saw her on the ground. She denies any numbness, tingling, ewakness. PMD: Wanda PMH: see hpi PSH: see hpi Meds: see med rec Allergies: nkda Social: denies 01/01/19 13:15 Past History - Past Medical History Allergies/Adverse Reactions: Allergies Allergy/AdvReac Type Severity Reaction Status Date / Time No Known Drug Allergies Allergy Verified 01/02/19 02:40 Home Medications: Ambulatory Orders Aspirin Coated [Ecotrin -] 81 mg PO DAILY 09/01/12 Atorvastatin Ca [Lipitor] 40 mg PO HS 09/01/12 Levothyroxine [Synthroid -] 50 mcg PO DAILY 09/01/12 metFORMIN HCL [Glucophage] 1,000 mg PO BID 09/01/12 Glimepiride [Amaryl] 2 mg PO BID 09/15/12 Amlodipine Besylate 5 mg PO DAILY 01/01/19 Linagliptin [Tradjenta] 5 mg PO DAILY 01/01/19 Loratadine 10 mg PO DAILY 01/01/19 Ibuprofen [Motrin -] 600 mg PO TID #30 tablet 01/02/19 Methocarbamol [Robaxin -] 500 mg PO TID #30 tablet 01/02/19 Anemia: No Asthma: No Cancer: No Cardiac Disorders: No CVA: No COPD: No CHF: No Dementia: No Diabetes: Yes GI Disorders: No Disorders: No HTN: Yes Hypercholesterolemia: Yes Liver Disease: No Seizures: No Thyroid Disease: Yes - Surgical History Abdominal Surgery: Yes (cholesestectomy) Appendectomy: No Cardiac Surgery: No Cholecystectomy: Yes Lung Surgery: No Neurologic Surgery: No Orthopedic Surgery: Yes (RIGHT SHOULDER ARTHROSCOPY) - Suicide/Smoking/Psychosocial Hx Smoking History: Never smoked Have you smoked in the past 12 months: No 'Breaking Loose' booklet given: 09/15/12 Hx Alcohol Use: No Drug/Substance Use Hx: No Substance Use Type: Alcohol Hx Substance Use Treatment: No Review of Systems - Review of Systems Able to Perform ROS?: Yes Comments:: 01/01/19 13:16 Constitutional - no reported Fever, Chills, HEENT: no reported vision changes, sore throat Respiratory: no reported cough, sob, hemoptysis Cardiac: no reported chest pain, palpitations, light headedness, leg swelling Abd/GI: no reported abd pain, nausea, vomiting, blood per rectum, melena, diarrhea : no reported dysuria, frequency, discharge Musculskelatal - +R knee pain no reported back pain, joint swelling skin - no reported bruising, erythema, rash neurological: no reported headache, numbness, focal weakness, tingling, ataxia, hematologic: no reported easy bruising, easy bleeding *Physical Exam - Physical Exam Comments: 01/01/19 13:17 GENERAL: The patient is awake, alert, and fully oriented, Nontoxic - in no acute distress. HEAD: Normocephalic, atraumatic. EYES: extraocular movements intact, sclera anicteric, conjunctiva clear. ENT: Normal voice, Moist mucous membranes. NECK: Normal range of motion, supple BACK: No focal ttp to midlne cervical/thoracic/lumbar spine LUNGS: Breath sounds equal, clear to auscultation bilaterally. No wheezes, no rhonchi, no rales. HEART: Regular rate and rhythm, normal S1 and S2 without murmur, rub or gallop. ABDOMEN: Soft, nontender, No guarding, no rebound. No CVA tenderness EXTREMITIES: Mild diffuse ttp on R knee/tibfib. Normal passive rom of R hip without shortening/external rotation, no focal ttp to hip, femur, distal tibfib , ankle. no ttp or limitations of movement on UE or LLE. NEUROLOGICAL: No facial assymetry, Normal speech Medical Decision Making - Medical Decision Making 01/01/19 15:16 xrays engative for fx will dc the pt with mpd fu and supportive care pt given a knee immobilizer I discussed the physical exam findings, ancillary test results and final diagnoses with the patient. I answered all of the patient's questions. The patient was satisfied with the care received and felt comfortable with the discharge plan and treatment plan. The patient will call their primary care physician within 24 hours to arrange follow-up and will return to the Emergency Department with any new, persistent or worsening symptoms. *DC/Admit/Observation/Transfer Diagnosis at time of Disposition: Knee pain, right Qualifiers: Chronicity: acute Qualified Code(s): M25.561 - Pain in right knee - Discharge Dispostion Disposition: HOME Condition at time of disposition: Improved Decision to Admit order: No - Referrals Referrals: Kp Bingham MD [Staff Physician] - - Patient Instructions Printed Discharge Instructions: DI for Knee Pain Additional Instructions: Return to the emergency department immediately with ANY new, persistent or worsening symptoms. Take tylenol or motrin as needed for pain You MUST call and follow up with your doctor tomorrow for further evaluation of your symptoms. Results were discussed with you. Please make sure your doctor reviews the results of your emergency evaluation. Your x-rays are negative for any fracture Print Language: [id number] - Post Discharge Activity
[2019-01-01] MEDS ORDERED: ACETAMINOPHEN 325 MG TABLET (FP) PO ONE (14:30)
[2019-01-01] MEDS ORDERED: ACETAMINOPHEN 325 MG TABLET (FP) ONE (14:31)
[2019-01-01 16:16] VITALS: BP 126/80; PULSE 90; TEMP 98.2; BMI 38.2
== END 2019-01-01 16:15 | disposition home or self-care (01) ==
LOC: FER 12:39
DX: M25.561 Pain in right knee (principal); E07.9 Disorder of thyroid, unspecified; I10 Essential (primary) hypertension; E78.00 Pure hypercholesterolemia, unspecified; E11.9 Type 2 diabetes mellitus without complications; I25.10 Atherosclerotic heart disease of native coronary artery without angina pectoris
CPT/HCPCS: 73523-TC-FY; 73562-TC-RT-FY; 73590-TC-RT-FY; 99283-25

== ENCOUNTER 2019-01-02 02:26 | Inpatient (IN) | payer OTHER | END 2019-01-05 19:23 | LOC: JER 02:26 → JERBED 03:39 → J8W 06:24 ==

== ENCOUNTER 2020-02-09 07:59 | Day surgery (SDC) | payer OTHER ==
[2020-02-01 11:02] VITALS: BMI 41.2
[~2020-02-09 07:59] MED LIST: ONDANSETRON 4 MG/2 ML VIAL IVPUSH PRN; oxyCODONE HCL 5 MG TABLET PO PRN
[2020-02-09] MEDS ORDERED: LACTATED RINGERS SOLUTION 1,000 ML IV SCH (08:00)
[2020-02-09] MEDS ORDERED: ceFAZolin SODIUM 1 GM VIAL ONE (08:42)
[2020-02-09] MEDS ORDERED: LIDOCAINE HCL/PF 2% SDV 5ML VIAL ONE (08:42)
[2020-02-09] MEDS ORDERED: PROPOFOL 20 ML ONE ×2 (08:42)
[2020-02-09] MEDS ORDERED: DEXAMETHASONE SOD PHOSPHATE 4 MG/1 ML VIAL ONE (08:42)
[2020-02-09] MEDS ORDERED: MIDAZOLAM HCL 2 MG/2 ML SINGLE DOSE VIAL ONE (08:42)
[2020-02-09] MEDS ORDERED: SODIUM CHLORIDE 0.9% P/F 10 ML VIAL IJ ONE (08:43)
[2020-02-09] MEDS ORDERED: SUCCINYLCHOLINE CHLORIDE 200 MG/10 ML SYRINGE ONE (08:51)
[2020-02-09] MEDS ORDERED: EPHEDRINE SULFATE/0.9% NACL/PF 50 MG/10 ML SYRINGE NR ONE (08:52)
--- NOTE | 2020-02-09 09:32 | OP ---
Operative Note - Note: Operative Date: 02/09/20 Pre-Operative Diagnosis: right medial meniscus tear Operation: right knee arthroscopy with partial medial meniscectomy Post-Operative Diagnosis: Same as Pre-op Surgeon: Kp Bingham Bleacher Lard: Socorro Montes Anesthesia: General Operative Report Dictated: Yes
[2020-02-09] MEDS ORDERED: BUPIVACAINE HCL/PF 0.25% (2.5MG/ML) 10 ML VIAL ONE (10:01)
[2020-02-09] MEDS ORDERED: BUPIVACAINE HCL/PF 0.25% (2.5MG/ML) 10 ML VIAL IJ ONE (10:02)
[2020-02-09] MEDS ORDERED: ONDANSETRON 4 MG/2 ML VIAL ONE (10:13)
[2020-02-09] MEDS ORDERED: KETOROLAC TROMETHAMINE 30 MG/1 ML VIAL ONE (10:13)
[2020-02-09] MEDS ORDERED: ACETAMINOPHEN INJECTION 100 ML IVPB ONE (10:51)
[2020-02-09] MEDS ORDERED: ACETAMINOPHEN 1000 MG/100 ML VIAL (NON FORMULARY) IVPB ONE (11:18)
[2020-02-09 13:06] VITALS: TEMP 97.7
[2020-02-09 13:12] VITALS: BP 126/75; PULSE 86
--- NOTE | 2020-02-09 17:30 | OP ---
DATE OF OPERATION: 02/09/2020 PREOPERATIVE DIAGNOSIS: Right knee lateral meniscal tear. POSTOPERATIVE DIAGNOSIS: Right knee lateral meniscal tear plus medial meniscal tear. PROCEDURE: Right knee arthroscopy with partial medial and partial lateral meniscectomy. SURGEON: Kp Red MD. JUMPBASTING FACING BASTER: MANAV Gilmore, physician assistant business manager, whose skillful assistance was necessary for the safe and timely performance of this procedure. Ms. Montes was able to provide positioning, retraction, assist in driving the camera, as well as manipulation of arthroscopic instrumentation. ANESTHESIA: General. POSTOPERATIVE CONDITION: Stable. COMPLICATIONS: None. INDICATION: This is a pleasant woman who has been suffering from knee pain which did not improve with more conservative means. MRI demonstrated lateral meniscus tear. Treatment options were discussed including nonoperative versus operative care. Operative risks were reviewed including bleeding, infection, neurovascular injury, need for further surgery, postoperative pain and stiffness, production of osteoarthritis. We discussed medical risks such as heart attack, stroke, DVT, PE, and . I addressed the use of perioperative antibiotics and DVT prophylaxis. I addressed all the patient's questions and concerns. She voiced understanding and elected to proceed. DESCRIPTION OF PROCEDURE: The patient was brought to the operating room where general anesthetic was administered. The right lower extremity was then prepped and draped in the usual sterile fashion. A perioperative dose of antibiotics was given, and the usual timeout procedure performed. The portals were then marked out and injected subcutaneously with 0.25% Marcaine. A lateral portal was now established with an 11-blade. The arthroscope was passed to the knee. Examination of the patellofemoral joint demonstrated some mild to moderate partial thickness articular lesions. Passing the arthroscope down into the femoral notch demonstrated thickened synovium. The arthroscope was passed into the medial compartment. Here, medial portal was established under spinal needle localization. The medial meniscus was probed and it was found to be a horizontal cleavage tear in the region of the root. The was significantly smaller and less viable, and therefore this was debrided, leaving intact. This was done utilizing a combination of meniscal biters and a shaver. The arthroscope was now passed in the lateral compartment. Here, a complex tear was noted involving the body and posterior horn of the lateral meniscus. Utilizing a combination of meniscal biters and shaver, this too was debrided down to a stable base. It should be noted on the medial side there was superficial fraying of the articular surface and this was noted on the lateral side as well. The arthroscope was now passed back towards the notch. The ligamentum was debrided. Here, partial tear of the ACL was visualized. There was a cyclops type lesion present which was debrided. At this point, the excess fluid was withdrawn from the joint. The portals were sutured using 3-0 nylon. Sterile dressings were placed. The patient was extubated and transferred to the recovery room in stable condition. KP RED M.D. [id number]
== END 2020-02-09 12:55 | disposition home or self-care (01) ==
LOC: FASU 07:59
PROVIDERS: ATTEND Orthopaedic Surgery Sports Medicine
PROC: 0SBC4ZZ Excision of Right Knee Joint, Percutaneous Endoscopic Approach (ICD-10-PCS; 2020-02-09)
PROC: 0SBC4ZZ Excision of Right Knee Joint, Percutaneous Endoscopic Approach (ICD-10-PCS; principal; 2020-02-09 10:02)
DX: S83.241A Other tear of medial meniscus, current injury, right knee, initial encounter (principal); S83.281A Other tear of lateral meniscus, current injury, right knee, initial encounter; X58.XXXA Exposure to other specified factors, initial encounter; Y93.9 Activity, unspecified; Y92.9 Unspecified place or not applicable
CPT/HCPCS: 82962; 94760; J0131

== ENCOUNTER 2020-07-28 09:43 | Emergency (ER) | payer OTHER | END 2020-07-28 12:46 | disposition home or self-care (01) | LOC: JVIRT 09:43 | DX: Z11.59 Encounter for screening for other viral diseases (principal) | CPT/HCPCS: C9803; G2251-GT; Q3014-GT; U0003 ==

== ENCOUNTER 2023-04-14 18:31 | Emergency (ER) | payer OTHER ==
[2023-04-14 19:20] VITALS: BP 137/91; PULSE 80; RESP 16; TEMP 98.6; BMI 37.9
[2023-04-14] MEDS ORDERED: oxyCODONE HCL 5 MG TABLET PO ONE (20:21)
[2023-04-14] MEDS ORDERED: KETOROLAC TROMETHAMINE 15 MG/ML VIAL IVPUSH ONE (20:21)
[2023-04-14 20:33] LABS: HEMATOCRIT 44.8 % (32.4-45.2); HEMOGLOBIN 14.5 G/dL (10.7-15.3); MCH 29.1 pg (25.7-33.7); MCHC 32.3 g/dl (32.0-36.0); MEAN CELL VOLUME 89.9 fl (80-96); MEAN PLT VOLUME 8.8 fl (7.5-11.1); PLATELET COUNT 224.9 10^3/uL (134-434); RBC 4.98 10^6/uL (3.60-5.2); RDW 15.3 % (11.6-15.6); WHITE BLOOD COUNT 7.9 10^3/uL (4.0-10.8)
[2023-04-14] MEDS ORDERED: KETOROLAC TROMETHAMINE 15 MG/ML VIAL ONE (20:51)
[2023-04-14] MEDS ORDERED: oxyCODONE HCL 5 MG TABLET ONE (20:51)
[2023-04-14 21:03] LABS: PLATELET ESTIMATE ADEQUATE
[2023-04-14 21:11] LABS: BILIRUBIN,TOTAL 0.4 mg/dl (0.2-1); BLOOD UREA NITROGEN 12.2 mg/dl (7-18); CALCIUM 9.8 mg/dl (8.5-10.1); CREATININE 0.7 mg/dl (0.6-1.3); POTASSIUM 4.2 mmol/L (3.5-5.1); SGOT/AST 20.6 U/L (15-37); SGPT/ALT 28.9 U/L (7-52); TOT PROT 7.8 g/dl (6.4-8.2); URIC ACID 3.9 mg/dl (2.6-7.2)
== END 2023-04-14 21:39 | disposition home or self-care (01) ==
LOC: FER 18:31
PROC: 3E033NZ Introduction of Analgesics, Hypnotics, Sedatives into Peripheral Vein, Percutaneous Approach (ICD-10-PCS; principal; 2023-04-14)
DX: M79.602 Pain in left arm (principal); M25.532 Pain in left wrist
CPT/HCPCS: 36415; 71046-TC-FY; 73030-TC-LT-FY; 73110-TC-LT-FY; 80053; 84484; 84550; 85027; 93005; 99285-25

== ENCOUNTER 2023-08-20 04:20 | Day surgery (SDC) | payer OTHER ==
[2023-08-17 13:56] VITALS: BMI 37.9
[2023-08-20 14:21] VITALS: BP 109/67; PULSE 73; RESP 20; TEMP 98
== END 2023-08-20 11:47 | disposition home or self-care (01) ==
LOC: JASU-ENDO 04:20
PROVIDERS: ATTEND Internal Medicine Gastroenterology
PROC: 0DBL8ZX Excision of Transverse Colon, Via Natural or Artificial Opening Endoscopic, Diagnostic (ICD-10-PCS; 2023-08-20)
PROC: 0DBN8ZX Excision of Sigmoid Colon, Via Natural or Artificial Opening Endoscopic, Diagnostic (ICD-10-PCS; principal; 2023-08-20 11:15)
DX: Z12.11 Encounter for screening for malignant neoplasm of colon (principal); K63.5 Polyp of colon; K64.8 Other hemorrhoids; I10 Essential (primary) hypertension; E11.9 Type 2 diabetes mellitus without complications; Z79.84 Long term (current) use of oral hypoglycemic drugs
CPT/HCPCS: 82962; 88305-TC

== ENCOUNTER 2024-02-16 15:53 | Emergency (ER) | payer OTHER ==
[2024-02-16 16:15] VITALS: RESP 18; BMI 34.9
[2024-02-16] MEDS ORDERED: ONDANSETRON *ODT* 4 MG TABLET ONE (16:20)
[2024-02-16] MEDS ORDERED: ACETAMINOPHEN 325 MG TABLET (FP) ONE (16:20)
[2024-02-16] MEDS: ONDANSETRON *ODT* 4 MG TABLET SL ONE (16:25)
[2024-02-16] MEDS: ACETAMINOPHEN 325 MG TABLET (FP) PO ONE (16:25)
[2024-02-16] MEDS: SODIUM CHLORIDE 1,000 ML IV STA ×2 (17:45→19:00)
[2024-02-16] MEDS: IBUPROFEN 400 MG TABLET (FP) PO ONE (19:05)
[2024-02-16] MEDS ORDERED: IBUPROFEN 400 MG TABLET (FP) PO ONE (19:21)
[2024-02-16 19:46] LABS: HEMATOCRIT 38.9 % (32.4-45.2); HEMOGLOBIN 12.4 G/dL (10.7-15.3); MCH 29.1 pg (25.7-33.7); MCHC 31.7 g/dl (32.0-36.0); MEAN CELL VOLUME 91.7 fl (80-96); MEAN PLT VOLUME 10.3 fl (7.5-11.1); PLATELET COUNT 140.8 10^3/uL (134-434); RBC 4.24 10^6/uL (3.60-5.2); RDW 14.3 % (11.6-15.6); WHITE BLOOD COUNT 5.7 10^3/uL (4.0-10.8)
[2024-02-16 19:50] LABS: PLATELET ESTIMATE ADEQUATE
[2024-02-16 19:57] LABS: ALBUMIN 4.1 g/dl (3.4-5.0); BILIRUBIN,TOTAL 0.6 mg/dl (0.2-1); CALCIUM 9.1 mg/dl (8.5-10.1); CREATININE 0.5 mg/dl (0.6-1.3); POTASSIUM 3.7 mmol/L (3.5-5.1); TOT PROT 6.2 g/dl (6.4-8.2)
[2024-02-16 21:19] VITALS: BP 117/72; PULSE 101; TEMP 98.9
== END 2024-02-16 22:29 | disposition home or self-care (01) ==
LOC: FER 15:53
PROC: 3E0337Z Introduction of Electrolytic and Water Balance Substance into Peripheral Vein, Percutaneous Approach (ICD-10-PCS; principal; 2024-02-16)
PROC: 3E0337Z Introduction of Electrolytic and Water Balance Substance into Peripheral Vein, Percutaneous Approach (ICD-10-PCS; 2024-02-16)
DX: U07.1 COVID-19 (principal); R06.02 Shortness of breath; R05.9 Cough, unspecified; R50.9 Fever, unspecified; R00.2 Palpitations; J02.9 Acute pharyngitis, unspecified; R63.0 Anorexia; R11.0 Nausea
CPT/HCPCS: 0241U-QW; 36415; 71045-TC-FY; 80053; 84484; 85027; 93005; 99285-25; Q0162